=== PATIENT | female | born 1970 | race Caucasian/White ===

== ENCOUNTER 2017-10-07 13:37 | Inpatient (IN) | payer MEDICARE, OTHER ==
[~2017-10-07] VITALS: Ht 162.6 cm; Wt 71.0 kg
[2017-10-07 14:05] VITALS: BP 112/70; PULSE 90; RESP 18; TEMP 98.1; O2SAT 99
--- NOTE | 2017-10-07 14:06 | PD ---
HPI Chief Complaint: ba Time Seen by Provider: 13:45 Travel History International Travel<30 days: No Contact w/Intl Traveler<30days: No Traveled to known affect area: No History of Present Illness HPI 47-year-old female brought to the emergency department under Lee act for psychiatric evaluation. Patient was brought in because she broke her journal that she took 10 pills this morning. When looking at her journal, patient rates every day as she chronicles her daily activity that she takes 10 pills. Patient states that she is depressed and is having suicidal thoughts with a plan to put a knife to her stomach. She has not actively attempted any suicide or overdose attempt today. She has no acute medical needs at this time. [facility] Past Medical History Medical History: Denies Significant Hx Social History Alcohol Use: No Tobacco Use: No Substance Use: No Allergies-Medications (Allergen,Severity, Reaction): Coded Allergies: No Known Drug Allergies (Verified Allergy, Unknown, 10/07/17) Uncoded Allergies: FISH (Allergy, Intermediate, Nausea/Vomiting, 10/07/17) PT STATES SHE CAN'T EAT FISH Reported Meds & Prescriptions Reported Meds & Active Scripts Active Reported Vimpat (Lacosamide) 200 Mg Tab 200 Mg PO BID Keppra (Levetiracetam) 1,000 Mg Tab 2,000 Mg PO BID Omeprazole 20 Mg Tab 20 Mg PO DAILY Zocor (Simvastatin) 20 Mg Tab 20 Mg PO HS Ativan (Lorazepam) 0.5 Mg Tab 0.5 Mg PO HS Synthroid (Levothyroxine Sodium) 88 Mcg Tab 88 Mcg PO DAILY Review of Systems Except as stated in HPI: all other systems reviewed are Neg Physical Exam Narrative GENERAL: Well-nourished female patient in no acute distress. SKIN: Focused skin assessment warm/dry. HEAD: Atraumatic. Normocephalic. EYES: Pupils equal and round. No scleral icterus. No injection or drainage. ENT: No nasal bleeding or discharge. Mucous membranes pink and moist. NECK: Trachea midline. No JVD. CARDIOVASCULAR: Regular rate and rhythm. No murmur appreciated. RESPIRATORY: No accessory muscle use. Clear to auscultation. Breath sounds equal bilaterally. GASTROINTESTINAL: Abdomen soft, non-tender, nondistended. Hepatic and splenic margins not palpable. MUSCULOSKELETAL: No obvious deformities. No clubbing. No cyanosis. No edema. NEUROLOGICAL: Awake and alert. No obvious cranial nerve deficits. Motor grossly within normal limits. Normal speech. Data Data Last Documented VS Vital Signs Date Time Temp Pulse Resp B/P (MAP) Pulse Ox O2 Delivery O2 Flow Rate FiO2 10/07/17 18:34 97.9 78 18 127/65 (85) 97 Room Air Orders Orders Complete Blood Count With Diff (10/07/17 13:45) Comprehensive Metabolic Panel (10/07/17 13:45) Thyroid Stimulating Hormone (10/07/17 13:45) Urinalysis - C+S If Indicated (10/07/17 13:45) Psych Screen (10/07/17 13:45) Drug Screen, Random Urine (10/07/17 13:45) Alcohol (Ethanol) (10/07/17 13:45) Salicylates (Aspirin) (10/07/17 13:45) Tylenol (Acetaminophen) (10/07/17 13:45) Urine Culture (10/07/17 14:00) Lacosamide (Vimpat) (10/07/17 21:45) Levetiracetam (Keppra) (10/07/17 21:45) Lorazepam (Ativan) (10/07/17 21:45) Labs Laboratory Tests Test 10/07/17 14:00 White Blood Count 12.2 TH/MM3 Red Blood Count 4.75 MIL/MM3 Hemoglobin 14.2 GM/DL Hematocrit 42.6 % Mean Corpuscular Volume 89.7 FL Mean Corpuscular Hemoglobin 29.9 PG Mean Corpuscular Hemoglobin Concent 33.3 % Red Cell Distribution Width 14.2 % Platelet Count 323 TH/MM3 Mean Platelet Volume 8.2 FL Neutrophils (%) (Auto) 66.6 % Lymphocytes (%) (Auto) 24.3 % Monocytes (%) (Auto) 7.2 % Eosinophils (%) (Auto) 1.3 % Basophils (%) (Auto) 0.6 % Neutrophils # (Auto) 8.2 TH/MM3 Lymphocytes # (Auto) 3.0 TH/MM3 Monocytes # (Auto) 0.9 TH/MM3 Eosinophils # (Auto) 0.2 TH/MM3 Basophils # (Auto) 0.1 TH/MM3 CBC Comment DIFF FINAL Differential Comment Urine Color YELLOW Urine Turbidity CLOUDY Urine pH 7.0 Urine Specific [place] 1.020 Urine Protein NEG mg/dL Urine Glucose (UA) NEG mg/dL Urine Ketones NEG mg/dL Urine Occult Blood NEG Urine Nitrite NEG Urine Bilirubin NEG Urine Urobilinogen LESS THAN 2.0 MG/DL Urine Leukocyte Esterase MOD Urine RBC 2 /hpf Urine WBC 8 /hpf Urine Squamous Epithelial Cells 14 /hpf Urine Amorphous Sediment OCC Urine Bacteria FEW /hpf Urine Mucus FEW /lpf Microscopic Urinalysis Comment CULTURE INDICATED Blood Urea Nitrogen 13 MG/DL Creatinine 0.81 MG/DL Random Glucose 91 MG/DL Total Protein 8.1 GM/DL Albumin 3.8 GM/DL Calcium Level 9.6 MG/DL Alkaline Phosphatase 86 U/L Aspartate Amino Transf (AST/SGOT) 16 U/L Alanine Aminotransferase (ALT/SGPT) 25 U/L Total Bilirubin 0.1 MG/DL Sodium Level 139 MEQ/L Potassium Level 4.1 MEQ/L Chloride Level 106 MEQ/L Carbon Dioxide Level 25.9 MEQ/L Anion Gap 7 MEQ/L Estimat Glomerular Filtration Rate 75 ML/MIN Thyroid Stimulating Hormone 3rd Gen 0.761 uIU/ML Salicylates Level LESS THAN 1.7 MG/DL Urine Opiates Screen NEG Acetaminophen Level LESS THAN 2.0 MCG/ML Urine Barbiturates Screen NEG Urine Amphetamines Screen NEG Urine Benzodiazepines Screen NEG Urine Cocaine Screen NEG Urine Cannabinoids Screen NEG Ethyl Alcohol Level LESS THAN 3 MG/DL MDM Medical Decision Making Medical Screen Exam Complete: Yes Emergency Medical Condition: Yes Medical Record Reviewed: Yes Differential Diagnosis Mood disorder versus personality disorder versus adjustment reaction disorder Narrative Course 47-year-old female presents to the emergency department under Lee act for psychiatric evaluation. Patient appears without distress. Lab work is without acute concern. Culture is indicated in urine, however there are 14 squamous epithelial cells. This is likely a contaminated specimen. We'll wait for culture to grow before treated on antibiotics. Patient is medically cleared to undergo psychiatric screening for further evaluation and disposition. Diagnosis Primary Impression: Adjustment disorder Condition: Stable Vera Martínez Oct 07, 2017 14:06
[2017-10-07] MEDS ORDERED: OMEP20TA93 PO (14:22)
[2017-10-07] MEDS ORDERED: LORA-392 PO (14:22)
[2017-10-07] MEDS ORDERED: SYNT88TA PO (14:22)
[2017-10-07] MEDS ORDERED: VIMP200T PO (14:22)
[2017-10-07] MEDS ORDERED: KEPP10002 PO (14:22)
[2017-10-07] MEDS ORDERED: ZOCO20TA PO (14:22)
[2017-10-07 14:52] LABS: AMORPHOUS SEDIMENT, URINE OCC; BACTERIA, URINE FEW /hpf; BILIRUBIN, URINE NEG (NEG); BLOOD, URINE NEG (NEG); GLUCOSE,URINE NEG (NEG); KETONE, URINE NEG (NEG); MUCUS URINE FEW /lpf (OCC); NITRITE,URINE NEG (NEG); SQUAMOUS EPITHELIAL CELL URINE 14 /hpf (0-5); URINE COLOR YELLOW (YELLW/STRAW); URINE LEUKOCYTE ESTERASE MOD (NEG)
[2017-10-07 14:53] LABS: AUTOMATED NEUTROPHIL # 8.2 TH/MM3 (1.8-7.7); BASOPHIL # 0.1 TH/MM3 (0-0.2); BASOPHIL % 0.6 % (0.0-2.0); EOSINOPHIL # 0.2 TH/MM3 (0-0.4); EOSINOPHIL % 1.3 % (0.0-4.0); HEMATOCRIT 42.6 % (35.0-46.0); HEMOGLOBIN 14.2 GM/DL (11.6-15.3); LYMPH % 24.3 % (9.0-44.0); MEAN CELL VOLUME 89.7 FL (80.0-100.0); MEAN CORPUSCULAR HEMOGLOBIN 29.9 PG (27.0-34.0); MEAN CORPUSCULAR HGB CONC 33.3 % (32.0-36.0); MEAN PLATELET VOLUME 8.2 FL (7.0-11.0); MONO % 7.2 % (0.0-8.0); MONOCYTE # 0.9 TH/MM3 (0-0.9); NEUT % 66.6 % (16.0-70.0); PLATELET COUNT 323 TH/MM3 (150-450); RED BLOOD COUNT 4.75 MIL/MM3 (4.00-5.30); RED CELL DISTRIBUTION WIDTH 14.2 % (11.6-17.2); WHITE BLOOD COUNT 12.2 TH/MM3 (4.0-11.0)
[2017-10-07 14:55] LABS: ALBUMIN 3.8 GM/DL (3.4-5.0); AST (GOT) 16 U/L (15-37); BICARBONATE 25.9 MEQ/L (21.0-32.0); BLOOD UREA NITROGEN 13 MG/DL (7-18); CALCIUM 9.6 MG/DL (8.5-10.1); CHLORIDE 106 MEQ/L (98-107); CREATININE 0.81 MG/DL (0.50-1.00); GLOMERULAR FILTRATION RATE 75 ML/MIN (>89); GLUCOSE,RANDOM 91 MG/DL (74-106); SODIUM (NA) 139 MEQ/L (136-145)
[2017-10-07 15:05] LABS: ALKALINE PHOSPHATASE 86 U/L (45-117); ALT (GPT) 25 U/L (10-53); TOTAL BILIRUBIN ADULT 0.1 MG/DL (0.2-1.0); TOTAL PROTEIN 8.1 GM/DL (6.4-8.2)
[2017-10-07 15:11] LABS: ACETAMINOPHEN LESS THAN 2.0 MCG/ML (10.0-30.0)
[2017-10-07 18:34] VITALS: BP 127/65; PULSE 78; RESP 18; TEMP 97.9; O2SAT 97
[2017-10-07] MEDS ORDERED: LACOSAMIDE 100 MG TAB PO ONE (21:45)
[2017-10-07] MEDS ORDERED: LORazepam 1 MG TAB PO ONE (21:45)
[2017-10-07] MEDS ORDERED: levETIRAcetam 500 MG TAB PO ONE (21:45)
[2017-10-07 22:19] VITALS: BP 108/57; PULSE 91; RESP 17; O2SAT 100
[2017-10-07 23:05] VITALS: BP 140/63; PULSE 85; RESP 16; TEMP 97.8; O2SAT 98
[2017-10-07] MEDS ORDERED: LORazepam 1 MG TAB PO PRN (23:15)
[2017-10-07] MEDS ORDERED: LORazepam 2 MG/ML VIAL IM PRN (23:15)
[2017-10-07] MEDS ORDERED: ACETAMINOPHEN 325 MG TAB PO PRN (23:15)
[2017-10-07] MEDS ORDERED: MAGNESIUM HYDROXIDE SUSP 30 ML CUP PO PRN (23:15)
[2017-10-07] MEDS ORDERED: ALUMINUM/MAGNESIUM/SIMETH 30 ML CUP PO PRN (23:15)
[2017-10-08 05:00] VITALS: BP 102/58; PULSE 97; RESP 16; TEMP 96.9; O2SAT 96
[2017-10-08] MEDS ORDERED: PNEUMOCOCCAL POLYVALENT INJ 25 MCG/0.5 ML SYR IM ONE (09:00)
[2017-10-08] MEDS ORDERED: INFLUENZA VIRUS VACCINE (QUADRIVALENT) 0.5 ML SYR IM ONE (09:00)
[2017-10-08 09:49] LABS: BICARBONATE 27.9 MEQ/L (21.0-32.0); BLOOD UREA NITROGEN 12 MG/DL (7-18); CALCIUM 9.3 MG/DL (8.5-10.1); CHLORIDE 101 MEQ/L (98-107); CREATININE 0.84 MG/DL (0.50-1.00); GLOMERULAR FILTRATION RATE 72 ML/MIN (>89); GLUCOSE,RANDOM 80 MG/DL (74-106); SODIUM (NA) 138 MEQ/L (136-145)
[2017-10-08 09:50] LABS: CHOLESTEROL 199 MG/DL (120-200)
[2017-10-08 09:53] LABS: CHOLESTEROL/ HDL RATIO 4.97 RATIO; LDL CHOLESTEROL 105 MG/DL (0-99); TRIGLYCERIDES 269 MG/DL (42-150)
[2017-10-08] MEDS: levETIRAcetam 500 MG TAB PO SCH ×2 (10:00→20:37)
--- NOTE | 2017-10-08 10:18 | HHI.HP ---
Provisional Diagnosis Admission Date Oct 07, 2017 at 22:53 [place]. Adjustment disorder with depressed mood Certification of Person's Competence To Provide Express and Informed Consent I have personally examined Sury Hanks , a person being served at [facility] on, Oct 08, 2017 10:17. Express and informed consent means consent voluntarily given in writing, by a competent person, after sufficient explanation and disclosure of the subject matter involved to enable the person to make a knowing and willful decision without any element of force, fraud, deceit, duress, or other form of constraint or coercion. This person is 18 years of age or older, is not now known to be incompetent to consent to treatment with a guardian advocate, and does not have a health care surrogate or proxy currently making medical treatment decisions. I have found this person to be one of the following: [] Competent to provide express and informed consent, as defined above, for voluntary admission to this facility and is competent to provide express and informed consent for treatment. He/she has the consistent capacity to make well reasoned, willful, and knowing decisions concerning his or her medical or mental health treatment. The person fully and consistently understands the purpose of the admission for examination/placement and is fully capable of personally exercising all rights assured [place] [x] Incompetent to provide express and informed consent to voluntary admission, and this is incompetent to provide express and informed consent to treatment. The person must be transferred to involuntary status and a petition for a guardian advocate filed with the Circuit Court. [] Refusing to provide express and informed consent to voluntary admission but is competent to provide express and informed consent for treatment. The person must be discharged or transferred to involuntary status. Form shall be completed within 24 hours of a person's arrival at the receiving facility and filed in the clinical record of each person: 1. Admitted on a voluntary basis 2. Permitted to provide express and informed consent to his/her own treatment 3. Allowed to transfer from involuntary to voluntary status 4. Prior to permitting a person to consent to his or her own treatment after having been previously found incompetent to consent to treatment. 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 Discussion nursing staff reported that patient noted to be childlike and was endorsing suicidal ideation last night. Patient was found in the room noted to be calm and cooperative during to have concrete thought process with limited interactions as patient had bilateral hearing difficulties and was communicating primarily through handwritten notes. Patient was able to communicate that she was feeling like a wreck wanted to kill herself last night in the context of her mother having left her at home alone. Patient states that she had called 9 1 because she wanted to kill herself as well as endorsing that "no one else is nice to me" but did not elaborate further. Patient did report vague auditory hallucinations at night telling her "yes and no" as well as suicide ideation which persisted today. Collateral information obtained by patient's mother via telephone reported that prior to her admission mother had left a note for the patient that she was going to leave the home to take the niece somewhere and when she returned found out through Hospital, the patient was admitted to the inpatient psychiatry unit. Mother reported the patient typically takes about 10 pills at a time and report from ED as documented in the patient had taken 10 tablets with concern of a suicide attempt but mother was able to report that that this the normal amount of tablets she takes daily. She also mentions that patient has had previous episode of SI in high school which she was seen by a psychiatrist but no prior medication trials. She denied patient having had prior suicide attempts or self injurious behavior. She reports that patient was being referred to neurologist by PCP. Family psychiatric history: unable to assess due to limitations of communication as stated above. Past psychiatric history: no prior psychiatric diagnosis, no prior psychiatric admissions, no prior suicide attempt or self injury behavior. No reported previous medication trials. No outpatient mental health provider at this time. 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 Collateral contact: Nakia Harry (mom) [phone] Review of Systems Except as stated in HPI: all other systems reviewed are Neg Past Psych History Violence risk - others (6 mos) low Violence risk - self (6 mos) Elevated due to recent endorsement of suicidal ideations. Substance Abuse History Drugs/Alcohol past 12 months denies Past Family Social History Coded Allergies: No Known Drug Allergies (Verified Allergy, Unknown, 10/07/17) Uncoded Allergies: FISH (Allergy, Intermediate, Nausea/Vomiting, 10/07/17) PT STATES SHE CAN'T EAT FISH Reported Medications Lacosamide (Vimpat) 200 Mg Tab, 200 MG PO BID for Control Seizures, #60 TAB 0 Refills 10/07/17 Levetiracetam (Keppra) 1,000 Mg Tab, 2000 MG PO BID for Control Seizures, #60 TAB 0 Refills 10/07/17 Omeprazole (Omeprazole) 20 Mg Tab, 20 MG PO DAILY, #30 TAB 0 Refills 10/07/17 Simvastatin (Zocor) 20 Mg Tab, 20 MG PO HS for Cholesterol Management, #30 TAB 0 Refills 10/07/17 Lorazepam (Ativan) 0.5 Mg Tab, 0.5 MG PO HS, TAB 0 Refills 10/07/17 Levothyroxine (Synthroid) 88 Mcg Tab, 88 MCG PO DAILY for Thyroid, #30 TAB 0 Refills 10/07/17 Current Medications Medications (Trade) Dose Ordered Sig/Raeann Route Start Time Stop Time Status Last Admin (Ativan) 1 mg Q6H PRN PO 10/07/17 23:15 (Ativan Inj) 1 mg Q6H PRN IM 10/07/17 23:15 (Tylenol) 650 mg Q4H PRN PO 10/07/17 23:15 (Milk Of Magnesia Liq) 30 ml DAILY PRN PO 10/07/17 23:15 (Mag-Al Plus Susp Liq) 30 ml Q6H PRN PO 10/07/17 23:15 (Vimpat) 200 mg BID PO 10/08/17 11:00 (Keppra) 2,000 mg BID PO 10/08/17 10:00 (Synthroid) 88 mcg DAILY@0600 PO 10/09/17 06:00 (Protonix) 20 mg DAILY PO 10/08/17 09:30 (Pravachol) 40 mg HS PO 10/08/17 21:00 (Zoloft) 50 mg DAILY PO 10/08/17 10:00 Family Psych History unable to assess due to limitations of communication as stated above. Social History Single, domiciled with mother and mother's , unemployed. Collateral contact: Nakia Harry (mom) [phone] Patient's Strengths (min. 2) verbal and communicative Physical Exam Patient noted to be in acute distress, no gross motor abnormalities, no tremor or EPS, no psychomotor retardation or agitation. Vital Signs Vital Signs Date Time Temp Pulse Resp B/P (MAP) Pulse Ox O2 Delivery O2 Flow Rate FiO2 10/08/17 05:00 96.9 97 16 102/58 (73) 96 10/07/17 22:19 Room Air I/O 10/08/17 10/08/17 10/09/17 08:00 16:00 00:00 Intake Total 240 ml Balance 240 ml Lab Results Test 10/07/17 14:00 10/08/17 08:30 White Blood Count 12.2 TH/MM3 Red Blood Count 4.75 MIL/MM3 Hemoglobin 14.2 GM/DL Hematocrit 42.6 % Mean Corpuscular Volume 89.7 FL Mean Corpuscular Hemoglobin 29.9 PG Mean Corpuscular Hemoglobin Concent 33.3 % Red Cell Distribution Width 14.2 % Platelet Count 323 TH/MM3 Mean Platelet Volume 8.2 FL Neutrophils (%) (Auto) 66.6 % Lymphocytes (%) (Auto) 24.3 % Monocytes (%) (Auto) 7.2 % Eosinophils (%) (Auto) 1.3 % Basophils (%) (Auto) 0.6 % Neutrophils # (Auto) 8.2 TH/MM3 Lymphocytes # (Auto) 3.0 TH/MM3 Monocytes # (Auto) 0.9 TH/MM3 Eosinophils # (Auto) 0.2 TH/MM3 Basophils # (Auto) 0.1 TH/MM3 CBC Comment DIFF FINAL Differential Comment Urine Color YELLOW Urine Turbidity CLOUDY Urine pH 7.0 Urine Specific [place] 1.020 Urine Protein NEG mg/dL Urine Glucose (UA) NEG mg/dL Urine Ketones NEG mg/dL Urine Occult Blood NEG Urine Nitrite NEG Urine Bilirubin NEG Urine Urobilinogen LESS THAN 2.0 MG/DL Urine Leukocyte Esterase MOD Urine RBC 2 /hpf Urine WBC 8 /hpf Urine Squamous Epithelial Cells 14 /hpf Urine Amorphous Sediment OCC Urine Bacteria FEW /hpf Urine Mucus FEW /lpf Microscopic Urinalysis Comment CULTURE INDICATED Blood Urea Nitrogen 13 MG/DL 12 MG/DL Creatinine 0.81 MG/DL 0.84 MG/DL Random Glucose 91 MG/DL 80 MG/DL Total Protein 8.1 GM/DL Albumin 3.8 GM/DL Calcium Level 9.6 MG/DL 9.3 MG/DL Alkaline Phosphatase 86 U/L Aspartate Amino Transf (AST/SGOT) 16 U/L Alanine Aminotransferase (ALT/SGPT) 25 U/L Total Bilirubin 0.1 MG/DL Sodium Level 139 MEQ/L 138 MEQ/L Potassium Level 4.1 MEQ/L 3.8 MEQ/L Chloride Level 106 MEQ/L 101 MEQ/L Carbon Dioxide Level 25.9 MEQ/L 27.9 MEQ/L Anion Gap 7 MEQ/L 9 MEQ/L Estimat Glomerular Filtration Rate 75 ML/MIN 72 ML/MIN Thyroid Stimulating Hormone 3rd Gen 0.761 uIU/ML Salicylates Level LESS THAN 1.7 MG/DL Urine Opiates Screen NEG Acetaminophen Level LESS THAN 2.0 MCG/ML Urine Barbiturates Screen NEG Urine Amphetamines Screen NEG Urine Benzodiazepines Screen NEG Urine Cocaine Screen NEG Urine Cannabinoids Screen NEG Ethyl Alcohol Level LESS THAN 3 MG/DL Triglycerides Level 269 MG/DL Cholesterol Level 199 MG/DL LDL Cholesterol 105 MG/DL HDL Cholesterol 40.0 MG/DL Cholesterol/HDL Ratio 4.97 RATIO Date/Time Source Procedure Growth Status 10/07/17 14:00 Urine Random Urine Urine Culture Pending Received Mental Status Examination Appearance: Appropriate Consciousness: Alert Orientation: Person, Place Motor Activity: Other (slow gait) Speech: Slow Language: Adequate Fund of Knowledge: Inadequate Attention and Concentration: Inadequate Memory: Unremarkable Mood: Appropriate Affect: Blunt Thought Process & Associations: Other (concrete) Thought Content: Appropriate Hallucination Type: None, Auditory Delusion Type: None Suicidal Ideation: Yes Suicidal Plan: Yes Suicidal Intention: No Homicidal Ideation: No Homicidal Plan: No Homicidal Intention: No Insight: Fair Judgment: Impulsive Assessment & Plan Problem List: (1) Adjustment disorder with depressed mood ICD Codes: F43.21 - Adjustment disorder with depressed mood Assessment & Plan Estimated LOS: 5-7 days. 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 Patient continues to report feeling depressed lately along with vague suicide ideations at this time. Patient noted to have very concrete thought process due to sequelae from past treatment for brain cancer. We will petition for involuntary hospitalization, with a point mother as after surgery guardian advocate. Consent for treatment was discussed with patient's mother over the phone. We will start sertraline 50 mg p.o. daily for depression, request a neurology consult for recommendations for antiseizure regimen. Continue to monitor with behavior. Social work intervention for psychosocial evaluation, individual/ group therapy. Discharge planning in progress. Discharge Planning Patient to return back to her residence once psychiatrically cleared Junaid Duran MD Oct 08, 2017 10:18
[2017-10-08] MEDS: LACOSAMIDE 100 MG TAB PO SCH ×2 (11:41→20:37)
[2017-10-08] MEDS: PANTOPRAZOLE SOD 20 MG DELAYED RELEASE TAB PO SCH (11:42)
[2017-10-08] MEDS: SERTRALINE HCL 50 MG TAB PO SCH (11:42)
--- NOTE | 2017-10-08 15:09 | PD.CONS ---
HPI Service [facility] Hospitalists Consult Requested By Dr. 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 Reportedly patient stated in the ER she wanted to put a knife in her stomach. Hospitalists consulted for medical management. The patient is seen in her room. She is very hard of hearing and therefore most communication was done via writing. She denies any specific medical complaints including no headache, lightheadedness, dizziness, chest pain, palpitations, shortness of breath, or abdominal complaints. She reports taking Keppra and Vimpat for her seizures. Denies any recent seizure. Review of Systems ROS Limitations: Hearing Impaired Except as stated in HPI: all other systems reviewed are Neg Past Family Social History Allergies: Coded Allergies: No Known Drug Allergies (Verified Allergy, Unknown, 10/07/17) Uncoded Allergies: FISH (Allergy, Intermediate, Nausea/Vomiting, 10/07/17) PT STATES SHE CAN'T EAT FISH Past Medical History right frontotemporal brain tumor resection age 13 s/p chemo/radiation seizures anxiety depression hypothyroidism GERD Past Surgical History Right frontotemporal brain tumor resection age 13 Reported Medications Vimpat (Lacosamide) 200 Mg Tab 200 Mg PO BID Keppra (Levetiracetam) 1,000 Mg Tab 2,000 Mg PO BID Omeprazole 20 Mg Tab 20 Mg PO DAILY Zocor (Simvastatin) 20 Mg Tab 20 Mg PO HS Ativan (Lorazepam) 0.5 Mg Tab 0.5 Mg PO HS Synthroid (Levothyroxine Sodium) 88 Mcg Tab 88 Mcg PO DAILY Active Ordered Medications Current Medications Medications (Trade) Dose Ordered Sig/Raeann Route Start Time Stop Time Status Last Admin (Ativan) 1 mg Q6H PRN PO 10/07/17 23:15 (Ativan Inj) 1 mg Q6H PRN IM 10/07/17 23:15 (Tylenol) 650 mg Q4H PRN PO 10/07/17 23:15 (Milk Of Magnesia Liq) 30 ml DAILY PRN PO 10/07/17 23:15 (Mag-Al Plus Susp Liq) 30 ml Q6H PRN PO 10/07/17 23:15 (Vimpat) 200 mg BID PO 10/08/17 11:00 10/08/17 11:41 (Keppra) 2,000 mg BID PO 10/08/17 10:00 10/08/17 10:00 (Synthroid) 88 mcg DAILY@0600 PO 10/09/17 06:00 (Protonix) 20 mg DAILY PO 10/08/17 09:30 10/08/17 11:42 (Pravachol) 40 mg HS PO 10/08/17 21:00 (Zoloft) 50 mg DAILY PO 10/08/17 10:00 10/08/17 11:42 (Ativan) 0.5 mg HS PO 10/08/17 21:00 Family History Family history positive for depression Social History Denies any tobacco, alcohol, or illicit drug use Physical Exam Vital Signs Vital Signs Date Time Temp Pulse Resp B/P (MAP) Pulse Ox O2 Delivery O2 Flow Rate FiO2 10/08/17 05:00 96.9 97 16 102/58 (73) 96 10/07/17 23:05 97.8 85 16 140/63 (88) 98 10/07/17 23:03 10/07/17 22:19 91 17 108/57 (74) 100 Room Air 10/07/17 18:34 97.9 78 18 127/65 (85) 97 Room Air Physical Exam GENERAL: Well-nourished, well-developed patient in NAD. Hard of hearing. SKIN: Warm and dry. No rash. HEAD: Normocephalic. Atraumatic. EYES: Pupils equal and round. No scleral icterus. No injection or drainage. ENT: No nasal bleeding or discharge. Mucous membranes pink and moist. NECK: Supple. Trachea midline. CARDIOVASCULAR: Regular rate and rhythm. S1, S2 noted. No murmur appreciated. RESPIRATORY: No accessory muscle use. Clear to auscultation. Breath sounds equal bilaterally. GASTROINTESTINAL: Abdomen soft, non-tender, nondistended. Normoactive bowel sounds x4. MUSCULOSKELETAL: No obvious deformities. Extremities without clubbing, cyanosis , or edema. NEUROLOGICAL: Awake and alert. No obvious cranial nerve deficits. Motor grossly within normal limits. Normal speech. Laboratory Laboratory Tests Test 10/08/17 08:30 Blood Urea Nitrogen 12 Creatinine 0.84 Random Glucose 80 Calcium Level 9.3 Sodium Level 138 Potassium Level 3.8 Chloride Level 101 Carbon Dioxide Level 27.9 Anion Gap 9 Estimat Glomerular Filtration Rate 72 Triglycerides Level 269 Cholesterol Level 199 LDL Cholesterol 105 HDL Cholesterol 40.0 Cholesterol/HDL Ratio 4.97 Date/Time Source Procedure Growth Status 10/07/17 14:00 Urine Random Urine Urine Culture - Final 50-100,000 CFU/ML MIXED GRAM POSITIVE... 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 Hospitalists consulted for medical management. Depression with Suicidal Ideations: acute -continue management per psychiatry -currently on Zoloft Seizures: with hx of brain tumor resection. Chronic. -continue patient's vimpat and keppra -neurology consulted by psychiatry team Hearing Loss: patient with hx of right frontotemporal brain tumor resection age 13, now with progressive hearing loss -no prior imaging study on file, will check head CT -neurology consulted as above Hypothyroidism: chronic. TSH wnl. -continue patient's synthroid DVT Prophylaxis: patient is ambulatory Discussed Condition With Patient, psych staff Jocelynn Funk PA-C Oct 08, 2017 3:09 pm
[2017-10-08 16:05] LABS: HEMOGLOBIN A1C 5.7 % (4.3-6.0)
--- NOTE | 2017-10-08 16:21 | RADRPT ---
EXAM DATE/TIME: 10/08/2017 16:11 [facility] COMPARISON: No previous studies available for comparison. INDICATIONS : Progressive hearing loss. RADIATION DOSE: 36.33 CTDIvol (mGy) MEDICAL HISTORY : Seizures. ca brain, chemo, Rad tx SURGICAL HISTORY : Lobectomy. ENCOUNTER: Initial ACUITY: 1 day PAIN SCALE: 0/10 LOCATION: cranial TECHNIQUE: Multiple contiguous axial images were obtained of the head. Using automated exposure control and adj ustment of the mA and/or kV according to patient size, radiation dose was kept as low as reasonably a chievable to obtain optimal diagnostic quality images. DICOM format image data is available electro nically for review and comparison. FINDINGS: There are encephalomalacia changes in the right temporal region. There is mild central and cortical atrophy. Parenchymal calcification basalganglia right side. Ventricle size appropriate. There are no extra-axial fluid collections appreciated. Posterior fossa shows mild atrophic changes. Review of bone windows reveals hyperostosis frontalis interna There is no mastoid disease. CONCLUSION: Negative for an acute process I have no prior studies for comparison. MRI would be more sensitive for acoustic neuroma. Graeme Aguirre MD FACR on October 08, 2017 at 16:17 Board Certified Radiologist. This report was verified electronically.
[2017-10-08 16:43] VITALS: BP 103/80; PULSE 90; RESP 16; TEMP 98.1; O2SAT 98
[2017-10-08] MEDS: LORazepam 0.5 MG TAB PO SCH (20:37)
[2017-10-08] MEDS: PRAVASTATIN SOD 40 MG TAB PO SCH (20:37)
[2017-10-09] MEDS: LEVOTHYROXINE SODIUM 88 MCG TAB PO SCH (06:08)
[2017-10-09 06:30] VITALS: BP 104/56; PULSE 100; RESP 16; TEMP 98; O2SAT 96
[2017-10-09] MEDS: levETIRAcetam 500 MG TAB PO SCH ×2 (08:35→21:07)
[2017-10-09] MEDS: PANTOPRAZOLE SOD 20 MG DELAYED RELEASE TAB PO SCH (08:35)
[2017-10-09] MEDS: LACOSAMIDE 100 MG TAB PO SCH ×2 (08:35→21:07)
[2017-10-09] MEDS: SERTRALINE HCL 50 MG TAB PO SCH (08:35)
--- NOTE | 2017-10-09 12:01 | HHI.PR ---
Subjective Remarks The patient is seen resting in bed. She states she is very sleepy today, otherwise denies any other medical complaints. She consistently falls asleep during conversation. Vital signs reviewed and stable. No issues reported. Objective Vitals Vital Signs Date Time Temp Pulse Resp B/P (MAP) Pulse Ox O2 Delivery O2 Flow Rate FiO2 10/09/17 06:30 98.0 100 16 104/56 (72) 96 10/08/17 16:43 98.1 90 16 103/80 (88) 98 I/O 10/08/17 10/08/17 10/08/17 10/09/17 10/09/17 10/09/17 06:59 14:59 22:59 06:59 14:59 22:59 Intake Total 240 ml 240 ml 0 ml Balance 240 ml 240 ml 0 ml Intake Oral 240 ml 240 ml 0 ml Result Diagram: 10/07/17 1400 10/08/17 0830 Imaging Last Impressions Head CT 10/08/17 0000 Signed Impressions: Service Date/Time: Sunday, October 08, 2017 16:11 - CONCLUSION: Negative for an acute process I have no prior studies for comparison. MRI would be more sensitive for acoustic neuroma. Graeme Aguirre MD FACR Objective Remarks GENERAL: Well-nourished, well-developed patient in NAD. Hard of hearing. SKIN: Warm and dry. No rash. HEENT: Normocephalic. Atraumatic. Pupils equal and round. Mucous membranes pink and moist. CARDIOVASCULAR: Regular rate and rhythm. S1, S2 noted. No murmur appreciated. RESPIRATORY: No accessory muscle use. Clear to auscultation. Breath sounds equal bilaterally. GASTROINTESTINAL: Abdomen soft, non-tender, nondistended. Normoactive bowel sounds x4. MUSCULOSKELETAL: No obvious deformities. Extremities without clubbing, cyanosis , or edema. NEUROLOGICAL: Awake and alert. No obvious cranial nerve deficits. Motor grossly within normal limits. Normal speech. Medications and IVs Current Medications Medications (Trade) Dose Ordered Sig/Raeann Route Start Time Stop Time Status Last Admin (Ativan) 1 mg Q6H PRN PO 10/07/17 23:15 (Ativan Inj) 1 mg Q6H PRN IM 10/07/17 23:15 (Tylenol) 650 mg Q4H PRN PO 2/8/18 23:15 (Milk Of Magnesia Liq) 30 ml DAILY PRN PO 10/07/17 23:15 (Mag-Al Plus Susp Liq) 30 ml Q6H PRN PO 10/07/17 23:15 (Vimpat) 200 mg BID PO 10/08/17 11:00 10/09/17 08:35 (Keppra) 2,000 mg BID PO 10/08/17 10:00 10/09/17 08:35 (Synthroid) 88 mcg DAILY@0600 PO 10/09/17 06:00 10/09/17 06:08 (Protonix) 20 mg DAILY PO 10/08/17 09:30 10/09/17 08:35 (Pravachol) 40 mg HS PO 10/08/17 21:00 10/08/17 20:37 (Zoloft) 50 mg DAILY PO 10/08/17 10:00 10/09/17 08:35 (Ativan) 0.5 mg HS PO 10/08/17 21:00 10/08/17 20:37 A/P Problem List: (1) Adjustment disorder with depressed mood ICD Code: F43.21 - Adjustment disorder with depressed mood Assessment and Plan 47-year-old female with 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 Hospitalists consulted for medical management. Depression with Suicidal Ideations: acute -continue management per psychiatry -currently on Zoloft Seizures: with hx of brain tumor resection. Chronic. -continue patient's vimpat and keppra -neurology consulted by psychiatry team Hearing Loss: patient with hx of right frontotemporal brain tumor resection age 13, now with progressive hearing loss, unknown duration -Head CT images reviewed, no acute findings -Check brain MRI -neurology consulted as above Hypothyroidism: chronic. TSH wnl. -continue patient's synthroid DVT Prophylaxis: patient is ambulatory Jocelynn Funk PA-C Oct 09, 2017 12:01 pm
--- NOTE | 2017-10-09 14:11 | PD.PSY.CON ---
Provisional Diagnosis Admission Date Oct 07, 2017 at 22:53 [facility]. Adjustment disorder with depressed mood History of Present Illness Service Psychiatry Consult Requested By Psychiatry Reason for Consult 2nd opinion Primary Care Physician Unknown HPI Pt is a 39 YOWF with a hx of R temporal lobectomy, seizure disorder and hypothyroidism who was admitted to under a BA due to suicidal ideations and depression. Staff report that she has been focused on discharge. She has been compliant with medications. She reports depression and AH. She endorses recent SI but insight into need for treatment is poor. 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 Collateral contact: Nakia Harry (mom) [phone] Past Family Social History Coded Allergies: No Known Drug Allergies (Verified Allergy, Unknown, 10/07/17) Uncoded Allergies: FISH (Allergy, Intermediate, Nausea/Vomiting, 10/07/17) PT STATES SHE CAN'T EAT FISH Reported Medications Lacosamide (Vimpat) 200 Mg Tab, 200 MG PO BID for Control Seizures, #60 TAB 0 Refills 10/07/17 Levetiracetam (Keppra) 1,000 Mg Tab, 2000 MG PO BID for Control Seizures, #60 TAB 0 Refills 10/07/17 Omeprazole (Omeprazole) 20 Mg Tab, 20 MG PO DAILY, #30 TAB 0 Refills 10/07/17 Simvastatin (Zocor) 20 Mg Tab, 20 MG PO HS for Cholesterol Management, #30 TAB 0 Refills 10/07/17 Lorazepam (Ativan) 0.5 Mg Tab, 0.5 MG PO HS, TAB 0 Refills 10/07/17 Levothyroxine (Synthroid) 88 Mcg Tab, 88 MCG PO DAILY for Thyroid, #30 TAB 0 Refills 10/07/17 Current Medications Medications (Trade) Dose Ordered Sig/Raeann Route Start Time Stop Time Status Last Admin (Ativan) 1 mg Q6H PRN PO 10/07/17 23:15 (Ativan Inj) 1 mg Q6H PRN IM 10/07/17 23:15 (Tylenol) 650 mg Q4H PRN PO 10/07/17 23:15 (Milk Of Magnesia Liq) 30 ml DAILY PRN PO 10/07/17 23:15 (Mag-Al Plus Susp Liq) 30 ml Q6H PRN PO 10/07/17 23:15 (Vimpat) 200 mg BID PO 10/08/17 11:00 10/09/17 08:35 (Keppra) 2,000 mg BID PO 10/08/17 10:00 10/09/17 08:35 (Synthroid) 88 mcg DAILY@0600 PO 10/09/17 06:00 10/09/17 06:08 (Protonix) 20 mg DAILY PO 10/08/17 09:30 10/09/17 08:35 (Pravachol) 40 mg HS PO 10/08/17 21:00 10/08/17 20:37 (Zoloft) 50 mg DAILY PO 10/08/17 10:00 10/09/17 08:35 (Ativan) 0.5 mg HS PO 10/08/17 21:00 10/08/17 20:37 Patient's Strengths (min. 2) verbal and communicative Physical Exam Vital Signs Vital Signs Date Time Temp Pulse Resp B/P (MAP) Pulse Ox O2 Delivery O2 Flow Rate FiO2 10/09/17 06:30 98.0 100 16 104/56 (72) 96 10/07/17 22:19 Room Air I/O 10/09/17 10/09/17 10/10/17 08:00 16:00 00:00 Intake Total 0 ml Balance 0 ml Lab Results Date/Time Source Procedure Growth Status 10/07/17 14:00 Urine Random Urine Urine Culture - Final 50-100,000 CFU/ML MIXED GRAM POSITIVE... Complete Mental Status Examination Appearance: Appropriate Consciousness: Alert Orientation: Person, Place Motor Activity: Other (slow gait) Speech: Slow Language: Adequate Fund of Knowledge: Inadequate Attention and Concentration: Inadequate Memory: Unremarkable Mood: Appropriate Affect: Blunt Thought Process & Associations: Other (concrete) Thought Content: Appropriate Hallucination Type: None, Auditory Delusion Type: None Suicidal Ideation: Yes Suicidal Plan: Yes Suicidal Intention: No Homicidal Ideation: No Homicidal Plan: No Homicidal Intention: No Insight: Fair Judgment: Impulsive Assessment & Plan Problem List: (1) Adjustment disorder with depressed mood ICD Codes: F43.21 - Adjustment disorder with depressed mood Assessment & Plan I agree that pt meets criteria for involuntary hospitalization. Estimated LOS: days Sandy Flor MD Oct 09, 2017 14:11
--- NOTE | 2017-10-09 15:14 | MB ---
cc: FILIBERTO MOTLEY M.D. DATE OF CONSULTATION: 10/09/2017. REASON FOR CONSULTATION: Possible seizure. History of right frontotemporal brain tumor resection. HISTORY OF PRESENT ILLNESS: This is a 47-year-old woman with a history of, as stated, right frontotemporal brain tumor resection at age 13 with chemotherapy and radiation, history of seizures. She also has a history of anxiety, depression, hypothyroidism. She was brought into psychiatry and [facility] for depression and suicidal ideation. She stated in the emergency room she wanted to put a knife into her stomach. She currently is on Keppra and Vimpat. Keppra is 1000 milligrams twice a day and Vimpat is 200 milligrams twice a day and Ativan is 0.5 milligram at bedtime. She does not really answer any questions for me. She does a lot of writing but otherwise really does not follow what I am asking her. PAST MEDICAL HISTORY: She has a past medical history as stated. ALLERGIES: NONE REPORTED. CURRENT MEDICATIONS: 1. Vimpat. 2. Keppra. 3. Omeprazole. 4. Zocor. 5. Ativan. 6. Synthroid. FAMILY HISTORY: Depression. SOCIAL HISTORY: No tobacco, alcohol or drugs per chart. PHYSICAL EXAMINATION: VITAL SIGNS: On exam vitals are stable. Temperature is 98, heart rate between 90 to 100, respiratory rate 16, blood pressure 104/56. She is awake and alert. She is sitting at the end of bed writing. Her pupils are reactive. She has a right temporal abnormality from where she had surgery. Face looks symmetrical. Her speech is not dysarthric but very hypophonic, very monotone. Pupils reactive. Motor-brown she seems to move everything equally. Gait is withheld but she has been ambulating. DTRs are 1 to 2+. She does not follow for cerebellar. LABORATORY DATA: white count 12.2, no left shift. Chemistries: GFR 72. Triglycerides 269, cholesterol 199, LDL 105, HDL 40. HCG is negative. TSH 0.761. Tox screen was basically unremarkable. Urine cloudy with some white cells and culture is pending and does show 50 to 100,000 mixed lashawn. IMAGING STUDIES: Head CT negative for any acute process. IMPRESSION: 47-year-old woman with history of epilepsy, likely from removal of a brain tumor at age 13. 1. Continue her Keppra, lacosamide and Ativan. 2. I would get an MRI and an EEG. 3. Continue psychiatric care as doing. 4. If needed, further recommendations to be made accordingly. MD [address]/MARIA A /1:40 PM /3:06 PM
[2017-10-09 18:19] VITALS: BP 110/65; PULSE 104; RESP 16; TEMP 98.6; O2SAT 98
[2017-10-09] MEDS: PRAVASTATIN SOD 40 MG TAB PO SCH (21:07)
[2017-10-09] MEDS: LORazepam 0.5 MG TAB PO SCH (21:07)
--- NOTE | 2017-10-10 00:16 | EKG ---
Date Performed: 10/08/2017 Time Performed: 12:29:26 PTAGE: 47 years EKG: Sinus rhythm NORMAL ECG NO PREVIOUS TRACING DOCTOR: Alexi Mcfadedn Interpretating Date/Time 10/10/2017 00:14:59
[2017-10-10 06:22] VITALS: BP 106/56; PULSE 92; RESP 17; TEMP 99.1; O2SAT 92
[2017-10-10] MEDS: LEVOTHYROXINE SODIUM 88 MCG TAB PO SCH (06:25)
[2017-10-10] MEDS: LACOSAMIDE 100 MG TAB PO SCH ×2 (08:56→21:05)
[2017-10-10] MEDS: SERTRALINE HCL 50 MG TAB PO SCH (08:56)
[2017-10-10] MEDS: PANTOPRAZOLE SOD 20 MG DELAYED RELEASE TAB PO SCH (08:56)
[2017-10-10] MEDS: levETIRAcetam 500 MG TAB PO SCH ×2 (08:56→21:04)
[2017-10-10] MEDS ORDERED: GADODIAMIDE PF 287 MG/ML 20 ML VIAL (for RAD MRI) IVCONTRAST ONE (12:37)
--- NOTE | 2017-10-10 13:08 | RADRPT ---
EXAM DATE/TIME: 10/10/2017 12:27 [facility] COMPARISON: CT BRAIN W/O CONTRAST, October 08, 2017, 16:11. INDICATIONS : Psychosis. CONTRAST: 13 cc Omniscan (gadodiamide) IV MEDICAL HISTORY : Seizures. ca brain, chemo, Rad tx SURGICAL HISTORY : Lobectomy. ENCOUNTER: Initial ACUITY: 3 day PAIN SCORE: 0/10 LOCATION: cranial TECHNIQUE: Multiplanar, multisequence MRI of the brain was performed both prior to and following the administrat ion of paramagnetic contrast. FINDINGS: CEREBRUM: There has been apparent resection of the right anterior temporal lobe. There is abnormal white matter signal and expansion of the gyri identified within the left temporal lobe concerning for neoplasm. T his area demonstrates no evidence of enhancement after the administration of contrast. The remainder of the brain demonstrates normal dempsey-white matter differentiation. No additional sites of gyral enla rgement. No evidence of additional mass effect. No midline shift. WHITE MATTER: Abnormal increased T2 signal identified within the white matter of the left temporal lobe and scatter ed foci of increased T2 signal identified in the periventricular white matter. POSTERIOR FOSSA: The cerebellum and brainstem are intact. The 4th ventricle is midline. The cerebellopontine angle is unremarkable. The cerebellar tonsils are normal in position. DIFFUSION IMAGING: No focal areas of restricted diffusion are seen. No evidence of acute infarction. EXTRACRANIAL: The visualized portions of the orbits and paranasal sinuses are unremarkable. POST-CONTRAST: No abnormal areas of parenchymal or dural enhancement. No evidence of blood-brain barrier breakdown. CONCLUSION: The anterior aspect of the left temporal lobe is diffusely abnormal in appearance with increased T2 s ignal and expansion of the gyri concerning for neoplastic involvement. No evidence of enhancement. Th ere has been resection of the anterior aspect of the right temporal lobe.. Carmita Cortes MD on October 10, 2017 at 12:59 Board Certified Radiologist. This report was verified electronically.
--- NOTE | 2017-10-10 14:42 | HHI.PYPN ---
Subjective Remarks Pt seen and discussed with staff. She has been seclusive to her room. She has been obsessively making journal entries of every activity including # of bites of food. She was compliant [facility] medications and care. No aggressive behavior. Mental Status Examination Appearance: Appropriate Consciousness: Alert Orientation: Person, Place Motor Activity: Other (slow gait) Speech: Slow Language: Adequate Fund of Knowledge: Inadequate Attention and Concentration: Inadequate Memory: Unremarkable Mood: Appropriate Affect: Blunt Thought Process & Associations: Other (concrete) Thought Content: Appropriate Hallucination Type: None, Auditory Delusion Type: None Suicidal Ideation: No (denies today) Suicidal Plan: No Suicidal Intention: No Homicidal Ideation: No Homicidal Plan: No Homicidal Intention: No Insight: Fair Judgment: Impulsive Results Labs Date/Time Source Procedure Growth Status 10/07/17 14:00 Urine Random Urine Urine Culture - Final 50-100,000 CFU/ML MIXED GRAM POSITIVE... Complete Vitals/IOs Vital Signs Date Time Temp Pulse Resp B/P (MAP) Pulse Ox O2 Delivery O2 Flow Rate FiO2 10/10/17 06:22 99.1 92 17 106/56 (73) 92 10/07/17 22:19 Room Air Assessment & Plan Problem List: (1) Adjustment disorder with depressed mood ICD Codes: F43.21 - Adjustment disorder with depressed mood Assessment & Plan Continue current tx plan. Estimated LOS: days Justification for Cont. Inpt. monitoring for safety Sandy Flor MD Oct 10, 2017 14:42
--- NOTE | 2017-10-10 15:41 | HHI.PR ---
Subjective Remarks Follow up for hx of seizures, brain tumor, hearing loss. The patient is much more awake, alert today. Seen ambulating the hallways, brought to her room for evaluation in presence of [employer]. Communicated via writing. Discussed her abnormal MRI results. She states she is not aware of anything being abnormal on the left side of her brain. She states the right side was resected as a teenager. She's had total hearing loss for about 5 years now. Denies any headache, lightheadedness, dizziness, or visual changes. She is able to ambulate without difficulty. She has no other medical complaints at this time. She consistently asks for pants with a draw string throughout conversation and has a hard time focusing on the questions being asked. Objective Vitals Vital Signs Date Time Temp Pulse Resp B/P (MAP) Pulse Ox O2 Delivery O2 Flow Rate FiO2 10/10/17 06:22 99.1 92 17 106/56 (73) 92 10/09/17 18:19 98.6 104 16 110/65 (80) 98 I/O 10/09/17 10/09/17 10/09/17 10/10/17 10/10/17 10/10/17 07:00 15:00 23:00 07:00 15:00 23:00 Intake Total 0 ml 240 ml Balance 0 ml 240 ml Intake Oral 0 ml 240 ml Result Diagram: 10/07/17 1400 10/08/17 0830 Imaging Last Impressions Brain MRI 10/10/17 0000 Signed Impressions: Service Date/Time: Tuesday, October 10, 2017 12:27 - CONCLUSION: The anterior aspect of the left temporal lobe is diffusely abnormal in appearance with increased T2 signal and expansion of the gyri concerning for neoplastic involvement. No evidence of enhancement. There has been resection of the anterior aspect of the right temporal lobe.. Carmita Cortes MD Head CT 10/08/17 0000 Signed Impressions: Service Date/Time: Sunday, October 08, 2017 16:11 - CONCLUSION: Negative for an acute process I have no prior studies for comparison. MRI would be more sensitive for acoustic neuroma. Graeme Aguirre MD FACR Objective Remarks GENERAL: Well-nourished, well-developed patient in NAD. Deaf. SKIN: Warm and dry. No rash. HEENT: Normocephalic. Atraumatic. Pupils equal and round. Mucous membranes pink and moist. CARDIOVASCULAR: Regular rate and rhythm. S1, S2 noted. No murmur appreciated. RESPIRATORY: No accessory muscle use. Clear to auscultation. Breath sounds equal bilaterally. GASTROINTESTINAL: Abdomen soft, non-tender, nondistended. Normoactive bowel sounds x4. MUSCULOSKELETAL: No obvious deformities. Extremities without clubbing, cyanosis , or edema. NEUROLOGICAL: Awake and alert. No obvious cranial nerve deficits. Motor grossly within normal limits. Normal speech. Medications and IVs Current Medications Medications (Trade) Dose Ordered Sig/Raeann Route Start Time Stop Time Status Last Admin (Ativan) 1 mg Q6H PRN PO 10/07/17 23:15 (Ativan Inj) 1 mg Q6H PRN IM 10/07/17 23:15 (Tylenol) 650 mg Q4H PRN PO 10/07/17 23:15 (Milk Of Magnesia Liq) 30 ml DAILY PRN PO 10/07/17 23:15 (Mag-Al Plus Susp Liq) 30 ml Q6H PRN PO 10/07/17 23:15 (Vimpat) 200 mg BID PO 10/08/17 11:00 10/10/17 08:56 (Keppra) 2,000 mg BID PO 10/08/17 10:00 10/10/17 08:56 (Synthroid) 88 mcg DAILY@0600 PO 10/09/17 06:00 10/10/17 06:25 (Protonix) 20 mg DAILY PO 10/08/17 09:30 10/10/17 08:56 (Pravachol) 40 mg HS PO 10/08/17 21:00 10/09/17 21:07 (Zoloft) 50 mg DAILY PO 10/08/17 10:00 10/10/17 08:56 (Ativan) 0.5 mg HS PO 10/08/17 21:00 10/09/17 21:07 A/P Problem List: (1) Adjustment disorder with depressed mood ICD Code: F43.21 - Adjustment disorder with depressed mood Assessment and Plan 47-year-old female with 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 Hospitalists consulted for medical management. Depression with Suicidal Ideations: acute -continue management per psychiatry -currently on Zoloft Seizures: with hx of brain tumor resection. Chronic. -continue patient's vimpat and keppra -neurology consulted by psychiatry team, appreciate recommendations -checking EEG Hearing Loss with Abnormal Brain MRI: patient with hx of right frontotemporal brain tumor resection age 13, now with progressive hearing loss -Head CT images reviewed, no acute findings -Brain MRI shows anterior aspect of left temporal lobe diffusely abnormal with increased T2 signal and expansion of the gyri concerning for neoplastic involvement -neurology consulted as above -consult neurosurgery and oncology Hypothyroidism: chronic. TSH wnl. -continue patient's synthroid DVT Prophylaxis: patient is ambulatory Jocelynn Funk PA-C Oct 10, 2017 3:41 pm
[2017-10-10 17:30] VITALS: BP 128/82; PULSE 101; RESP 16; TEMP 98.9; O2SAT 96
--- NOTE | 2017-10-10 17:31 | MB ---
cc: VALERY VILLASENOR M.D. DATE OF CONSULTATION: 10/10/2017. REASON FOR CONSULTATION: Oncology was consulted to render opinion regarding a patient with abnormal brain MRI with a prior history of a brain tumor. CONSULTING PHYSICIAN: Dr. Funk. HISTORY OF PRESENT ILLNESS: The patient is a 47-year-old female admitted to the psychiatric unit under the Lee Act for depression and suicidal ideation. She has hearing loss and is not able to hear. The history was also obtained from her mother, Isha Harry, over the phone. 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 Unfortunately the tumor recurred 6 months later and she received chemotherapy for about 8 months. Since then, she has been in remission. She has had progressive hearing loss since the radiation. Her last hearing test was about 6 months ago. The patient was found to have profound hearing loss. She had lost her hearing aid recently. Due to the hearing loss, an MRI was ordered and it showed abnormal increased T2 signal with expansion of the gyri in the left frontotemporal lobe. No enhancement and no edema noted. The patient denies any headache. She reportedly has no constitutional symptoms. According nursing staff she is ambulating well. According to the mother, patient has had intermittent petite mal seizures. She denies chest pain or palpitation. Denies any shortness of breath or cough. Denies any nausea or vomiting or diarrhea or abdominal pain. PAST MEDICAL HISTORY: 1. 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 2. Seizure disorder. 3. Anxiety. 4. Depression. 5. Hypothyroidism. 6. Gastroesophageal reflux disease (GERD). 7. Hearing loss. 8. Non-melanoma skin cancer. PAST SURGICAL HISTORY: Craniotomy and resection of a skin cancer. FAMILY HISTORY: No cancer in the family. SOCIAL HISTORY: No tobacco or alcohol use. ALLERGIES: NO KNOWN DRUG ALLERGIES. CURRENT MEDICATIONS: 1. Synthroid. 2. Pravachol. 3. Ativan. 4. Vimpat. 5. Keppra. 6. Zoloft. 7. Protonix. REVIEW OF SYSTEMS: CONSTITUTIONAL: Negative. EYES: Negative. CARDIOVASCULAR: Negative. RESPIRATORY: Negative. GI: Negative. : Negative. MUSCULOSKELETAL: Negative. HEMATOLOGIC: Negative. ENDOCRINE: Negative. DERMATOLOGIC: Negative. PSYCHIATRIC: As above. NEUROLOGIC: As above. PHYSICAL EXAMINATION: Physical exam done with a fire control mechanic present. VITAL SIGNS: Temperature 99.1, blood pressure 106/56, 02 saturation 92% on room air. GENERAL: She is awake and very pleasant. She is oriented to self and place. She states that she wants to go home. HEAD, EYES, EARS, NOSE, THROAT: Surgical scar noted bilateral temporal area, which seems a little sunken. Pupils equal, round and reactive to light. OROPHARYNX: Dry mucosa. No lesions. NECK: No thyromegaly. LYMPHATIC: No palpable cervical, clavicular, axillary lymph nodes. CARDIOVASCULAR: Regular S1 and S2. No murmur. LUNGS: Clear to auscultation bilaterally. No wheezing or rhonchi. ABDOMEN: Abdomen soft and nontender. I could not palpate liver or spleen. EXTREMITIES: No cyanosis or clubbing. No edema. NEUROLOGIC EXAM: She is moving all four. LABORATORY DATA: Laboratory data dated October 07, 2017 was reviewed ASSESSMENT: 1. Abnormal brain MRI. She has had progressive hearing loss since radiation treatment of a brain tumor 35 years ago. The brain MRI did not show any acoustic neuroma; however, there is increased abnormal T2 signal and expansion of gyri in the left anterior temporal lobe. There is no enhancement and no edema noted. The radiologist felt that this could be a neoplastic process. 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 According to the patient's mother, the patient had three MRIs done last year and the last one was around May of last year. She thinks that one of the MRIs did mention some abnormality on the left side. Clinically the patient has no neurologic symptoms other than the progressive hearing loss, which is chronic. I told the patient's mother to bring in the MRI disc so that the radiologist can compare and see if there are any changes. The patient did have brain radiation in the past and I am wondering if any of this could be due to prior radiation changes. 2. 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 She had resection in May of 1984. Apparently it could not be totally resected due to the proximity to the brain stem. She then received 30 fractions of radiation for a total of 6000 rads. The tumor recurred six months later and then she was treated with five cycles of chemotherapy that lasted about eight months. Since then, she has been in remission. 3. Seizure disorder currently being followed by neurology. The mother states that she is awaiting a referral to see a neurologist at [facility]. 4. Hearing loss. She has progressive hearing loss since she had radiation thirty-five years ago. She has just had another hearing test six months ago which showed profound hearing loss and was told that a hearing aid is not going to help her. She has been referred to [facility] to consider a cochlear implant. 5. Anxiety and depression. As above. 6. Hypothyroidism. 7. Gastroesophageal reflux disease. 8. Non-melanoma skin cancer. RECOMMENDATIONS: 1. Extensive discussion with the patient's mother over the phone. 2. I told her to bring in the MRI disc from last year so that the radiologist can compare it to her recent MRI. 3. Further recommendations will depend on the comparison MRI. Thank you, Dr. Funk, for asking me to see this patient. MD YESENIA Walter/JCDelfino /4:04 PM /5:09 PM ERMIAS
--- NOTE | 2017-10-10 20:59 | MG ---
cc: FILIBERTO MOTLEY M.D. Lab No: Date: 10/10/2017 Age: Sex: F Race: DATE OF 1970, 47 years old ELECTROENCEPHALOGRAM NUMBER [id number] ROOM [id number] With photic stimulation. Awake, drowsy asleep study. CT initially negative. I believe followup MRI showed a new lesion. Please refer to report. This is a 47-year-old woman Lee acted for suicidal thoughts. History of left temporal lobe mass, lobectomy, radiation. MEDICATIONS Current medications are: 1. Vimpat. 2. Keppra. 3. Zoloft. 4. Protonix. 5. Synthroid. DESCRIPTION OF RECORD The patient exhibits phase reversals over the right hemisphere frontotemporal. There is overall slowing predominately of 6 Hz theta frequency as well. And some sharps were seen over the left hemisphere temporal and phase reversals over the right. Hyperventilation was not performed. Photic stimulation there is a mild driving response. IMPRESSION Abnormal EEG due to phase reversals as described with occasional sharp waves. Consistent with epileptic potential. The patient is already on lacosamide and Keppra. Clinical correlation. Active seizures however, were not observed. MD DAYTON Street/RIMA /7:44 PM /8:42 PM
[2017-10-10] MEDS: LORazepam 0.5 MG TAB PO SCH (21:05)
[2017-10-10] MEDS: PRAVASTATIN SOD 40 MG TAB PO SCH (21:08)
[2017-10-11 05:30] VITALS: BP 105/58; PULSE 82; RESP 17; TEMP 97.9; O2SAT 98
[2017-10-11] MEDS: LEVOTHYROXINE SODIUM 88 MCG TAB PO SCH (06:16)
[2017-10-11] MEDS: levETIRAcetam 500 MG TAB PO SCH ×2 (08:47→21:31)
[2017-10-11] MEDS: PANTOPRAZOLE SOD 20 MG DELAYED RELEASE TAB PO SCH (08:47)
[2017-10-11] MEDS: SERTRALINE HCL 50 MG TAB PO SCH (08:47)
[2017-10-11] MEDS: LACOSAMIDE 100 MG TAB PO SCH ×2 (08:47→21:31)
--- NOTE | 2017-10-11 10:25 | PD.TTN ---
Patient Problems 1. Discharge planning 2. Medication compliance 3. Knowledge deficit 4. Lack of coping skills Progress Toward Goals Provider Present: Dr. Monty Duran Provider Input: Dr. Duran's had his treatment team to discuss treatment plan, medication and discharge. Patient received a MRI and found new mass on patient's brain. Patient is depressed, but denies suicidal ideation. Patient is medication compliant. Once stable patient will go back home. Nurse(s) Input: Patient nurse reports patient is childlike, needy, cooperative, denies suicidal and homicidal ideation. Patient is medication compliant. Psychiatric Counselors Present: [facility] Input: Patient was cooperative, childlike, seclusive, affect blunted. Patient denies suicidal and homicidal ideation. Patient is medication compliant. Patient will return home Group Spec/RT/OT/HINOJOSA Present: ASHISH Ardon Spec/RT/OT/HINOJOSA Input: Patient is seclusive and attends no groups. Monik Raines [facility] Oct 11, 2017 10:25
--- NOTE | 2017-10-11 11:52 | PD.CONS ---
History of Present Illness Service Neurosurgery Consult Requested By Oncology service Reason for Consult History of right frontotemporal astrocytoma with left temporal lobe lesion on recent MRI Primary Care Physician Unknown Diagnoses: History of Present Illness The patient is a 47-year-old female. History is obtained from the medical record and the family. She has a history of right frontotemporal grade 2 astrocytoma treated with surgical resection followed by radiation therapy at age 13 years. With a year after surgery she received chemotherapy for recurrent lesion. She has been followed with intermittent brain MRI scans. She was recently admitted as a Lee act due to suicidal ideation. She states that she has occasional mild headaches. She also indicates some mild difficulty with ambulation and balance. No visual symptoms. She denies any significant weakness in the extremities. She does have a history of seizure disorder, recently underwent an EEG on 10/10/17 which revealed phase reversals with occasional sharp waves consistent with epileptic potential. She has been maintained on Keppra and lacosamide. Review of Systems Constitutional: DENIES: Fever Eyes: COMPLAINS OF: Blurred vision Respiratory: COMPLAINS OF: Shortness of breath Cardiovascular: COMPLAINS OF: Chest pain Gastrointestinal: COMPLAINS OF: Abdominal pain Musculoskeletal: COMPLAINS OF: Neck pain Neurologic: COMPLAINS OF: Headache Psychiatric: COMPLAINS OF: Suicidal Ideation Past Family Social History Allergies: Coded Allergies: No Known Drug Allergies (Verified Allergy, Unknown, 10/07/17) Uncoded Allergies: FISH (Allergy, Intermediate, Nausea/Vomiting, 10/07/17) PT STATES SHE CAN'T EAT FISH Past Medical History History of grade 2 astrocytoma right frontotemporal region Seizure disorder Anxiety and depression Past Surgical History Craniotomy for astrocytoma age 13 years Skin cancer resection Reported Medications Reported Meds & Active Scripts Active Reported Vimpat (Lacosamide) 200 Mg Tab 200 Mg PO BID Keppra (Levetiracetam) 1,000 Mg Tab 2,000 Mg PO BID Omeprazole 20 Mg Tab 20 Mg PO DAILY Zocor (Simvastatin) 20 Mg Tab 20 Mg PO HS Ativan (Lorazepam) 0.5 Mg Tab 0.5 Mg PO HS Synthroid (Levothyroxine Sodium) 88 Mcg Tab 88 Mcg PO DAILY Family History Negative for cancer Social History No alcohol or tobacco use Physical Exam Vital Signs Vital Signs Date Time Temp Pulse Resp B/P (MAP) Pulse Ox O2 Delivery O2 Flow Rate FiO2 10/11/17 05:30 97.9 82 17 105/58 (74) 98 10/10/17 17:30 98.9 101 16 128/82 (97) 96 Physical Exam GENERAL: This is a well-nourished, well-developed patient, in no apparent distress. SKIN: No lesions noted. HEAD: Atraumatic. Normocephalic. No temporal or scalp tenderness. EYES: Sclerae are clear and nonicteric ENT: No facial edema or ecchymosis. Oropharynx clear NECK: Trachea midline. No lymphadenopathy. Supple, nontender, no meningeal signs. CARDIOVASCULAR: Regular rate and rhythm without murmurs, gallops, or rubs. RESPIRATORY: Clear to auscultation. Breath sounds equal bilaterally. No wheezes , rales, or rhonchi. GASTROINTESTINAL: Abdomen soft, non-tender, nondistended. No hepato-splenomegaly , or palpable masses. No guarding. MUSCULOSKELETAL: Extremities without cyanosis, or edema. No joint tenderness, effusion, or edema noted. No calf tenderness. NEUROLOGIC: Awake and alert Hearing is significantly diminished She communicates verbally and in writing. She responds appropriately to questions She has some difficulty following commands accurately which appears to be related to imperative medication due to hearing loss. She says a few words with soft, relatively clear speech Extraocular movements are intact. She responds to finger movement or quadrants bilateral Facial motor and sensory, tongue, palate testing intact Severely diminished hearing bilateral Sensation intact by touch all extremities Strength within normal limits major flexion-extension groups all extremities Laboratory Date/Time Source Procedure Growth Status 10/07/17 14:00 Urine Random Urine Urine Culture - Final 50-100,000 CFU/ML MIXED GRAM POSITIVE... Complete Result Diagram: 10/07/17 1400 10/08/17 0830 Imaging 10/10/2017 MRI brain images reviewed by the undersigned. There is diffuse increased signal intensity in the anterior left temporal lobe with general expansion on T2 images. Postsurgical chronic changes right temporal lobe Brain MRI 10/10/17 0000 Signed Impressions: Service Date/Time: Tuesday, October 10, 2017 12:27 - CONCLUSION: The anterior aspect of the left temporal lobe is diffusely abnormal in appearance with increased T2 signal and expansion of the gyri concerning for neoplastic involvement. No evidence of enhancement. There has been resection of the anterior aspect of the right temporal lobe.. Carmita Cortes MD Head CT 10/08/17 0000 Signed Impressions: Service Date/Time: Sunday, October 08, 2017 16:11 - CONCLUSION: Negative for an acute process I have no prior studies for comparison. MRI would be more sensitive for acoustic neuroma. Graeme Aguirre MD FACR Assessment and Plan Assessment and Plan Impression: 1. Left anterior temporal lobe T2 signal intensity changes which are all expansion suspicious for low-grade astrocytoma and patient with previous history of right frontotemporal grade 2 astrocytoma. 2. Seizure history Plan: The imaging studies and oncology notes have been reviewed. On 10/12/17 the patient was reviewed at the tumor board and left temporal lobe MRI changes were felt to be most likely related to prior radiation therapy. Findings were discussed with the patient's mother on the telephone by the undersigned. She advises that she has an appointment with neurology at [facility] in October 2017. No neurosurgical intervention is anticipated at this point. It is quite appropriate that she follow up at [facility] with neurology and also with neurosurgery is indicated given the complexity of her situation. Ferdinand Gallegos MD Oct 11, 2017 11:51
--- NOTE | 2017-10-11 13:41 | HHI.PR ---
Subjective Remarks Follow up for hearing loss, abnormal MRI. The patient is seen resting in bed. She states she wants to go home. She is asking if her mom is coming to get her soon. She denies any headache, lightheadedness, dizziness, or any other medical complaints at this time. She states she is eating well. Vital signs reviewed and stable. Objective Vitals Vital Signs Date Time Temp Pulse Resp B/P (MAP) Pulse Ox O2 Delivery O2 Flow Rate FiO2 10/11/17 05:30 97.9 82 17 105/58 (74) 98 10/10/17 17:30 98.9 101 16 128/82 (97) 96 I/O 10/10/17 10/10/17 10/10/17 10/11/17 10/11/17 10/11/17 07:00 15:00 23:00 07:00 15:00 23:00 Intake Total 720 ml 240 ml 780 ml Balance 720 ml 240 ml 780 ml Intake Oral 720 ml 240 ml 780 ml # Voids 1 Result Diagram: 10/07/17 1400 10/08/17 0830 Imaging Last Impressions Brain MRI 10/10/17 0000 Signed Impressions: Service Date/Time: Tuesday, October 10, 2017 12:27 - CONCLUSION: The anterior aspect of the left temporal lobe is diffusely abnormal in appearance with increased T2 signal and expansion of the gyri concerning for neoplastic involvement. No evidence of enhancement. There has been resection of the anterior aspect of the right temporal lobe.. Carmita Cortes MD Head CT 10/08/17 0000 Signed Impressions: Service Date/Time: Sunday, October 08, 2017 16:11 - CONCLUSION: Negative for an acute process I have no prior studies for comparison. MRI would be more sensitive for acoustic neuroma. Graeme Aguirre MD FACR Objective Remarks GENERAL: Well-nourished, well-developed patient in NAD. Deaf. SKIN: Warm and dry. No rash. HEENT: Normocephalic. Atraumatic. Pupils equal and round. Mucous membranes pink and moist. CARDIOVASCULAR: Regular rate and rhythm. S1, S2 noted. No murmur appreciated. RESPIRATORY: No accessory muscle use. Clear to auscultation. Breath sounds equal bilaterally. GASTROINTESTINAL: Abdomen soft, non-tender, nondistended. Normoactive bowel sounds x4. MUSCULOSKELETAL: No obvious deformities. Extremities without clubbing, cyanosis , or edema. NEUROLOGICAL: Awake and alert. No obvious cranial nerve deficits. Motor grossly within normal limits. Normal speech. Medications and IVs Current Medications Medications (Trade) Dose Ordered Sig/Raeann Route Start Time Stop Time Status Last Admin (Ativan) 1 mg Q6H PRN PO 10/07/17 23:15 (Ativan Inj) 1 mg Q6H PRN IM 10/07/17 23:15 (Tylenol) 650 mg Q4H PRN PO 10/07/17 23:15 (Milk Of Magnesia Liq) 30 ml DAILY PRN PO 10/07/17 23:15 (Mag-Al Plus Susp Liq) 30 ml Q6H PRN PO 10/07/17 23:15 (Vimpat) 200 mg BID PO 10/08/17 11:00 10/11/17 08:47 (Keppra) 2,000 mg BID PO 10/08/17 10:00 10/11/17 08:47 (Synthroid) 88 mcg DAILY@0600 PO 10/09/17 06:00 10/11/17 06:16 (Protonix) 20 mg DAILY PO 10/08/17 09:30 10/11/17 08:47 (Pravachol) 40 mg HS PO 10/08/17 21:00 10/10/17 21:08 (Zoloft) 50 mg DAILY PO 10/08/17 10:00 10/11/17 08:47 (Ativan) 0.5 mg HS PO 10/08/17 21:00 10/10/17 21:05 A/P Problem List: (1) Adjustment disorder with depressed mood ICD Code: F43.21 - Adjustment disorder with depressed mood Assessment and Plan 47-year-old female with 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 Hospitalists consulted for medical management. Depression with Suicidal Ideations: acute -continue management per psychiatry -currently on Zoloft Seizures: with hx of brain tumor resection. Chronic. -continue patient's vimpat and keppra -neurology consulted by psychiatry team, appreciate recommendations -EEG abnormal with occasional sharp waves -no signs of active seizures reported, will continue current medication regimen as above Hearing Loss with Abnormal Brain MRI: patient with hx of right frontotemporal brain tumor resection age 13, now with progressive hearing loss -Head CT images reviewed, no acute findings -Brain MRI shows anterior aspect of left temporal lobe diffusely abnormal with increased T2 signal and expansion of the gyri concerning for neoplastic involvement -neurology consulted as above -consult neurosurgery and oncology -awaiting patient's mother to bring disc of previous brain MRIs for oncologist/neurosurgeon to compare Hypothyroidism: chronic. TSH wnl. -continue patient's synthroid DVT Prophylaxis: patient is ambulatory Jocelynn Funk PA-C Oct 11, 2017 1:41 pm
--- NOTE | 2017-10-11 16:22 | HHI.PYPN ---
Subjective Remarks Patient is seen for follow, chart reviewed. Discussion nursing staff reported the patient absent compliant with medications with no behavioral disturbances. Patient was found lying in hospital bed noted to be calm and cooperative. Medication was done through writing as patient has hearing loss. Patient was requesting to be discharged home stating that she had been feeling "okay" patient denied any further depressive symptoms stating that she wanted to go home with be with her mother. She reports having been visited by her mother yesterday. She denies any thoughts of wanting to hurt herself or any suicidal ideations at this time. Review of Systems Except as stated in HPI: all other systems reviewed are Neg Mental Status Examination Appearance: Appropriate Consciousness: Alert Orientation: Person, Place Motor Activity: Other (slow gait) Speech: Slow Language: Adequate Fund of Knowledge: Inadequate Attention and Concentration: Inadequate Memory: Unremarkable Mood: Appropriate Affect: Blunt Thought Process & Associations: Other (concrete) Thought Content: Appropriate Hallucination Type: None, Auditory Delusion Type: None Suicidal Ideation: No Suicidal Plan: No Suicidal Intention: No Homicidal Ideation: No Homicidal Plan: No Homicidal Intention: No Insight: Fair Judgment: Impulsive Results Labs Date/Time Source Procedure Growth Status 10/07/17 14:00 Urine Random Urine Urine Culture - Final 50-100,000 CFU/ML MIXED GRAM POSITIVE... Complete Vitals/IOs Vital Signs Date Time Temp Pulse Resp B/P (MAP) Pulse Ox O2 Delivery O2 Flow Rate FiO2 10/11/17 05:30 97.9 82 17 105/58 (74) 98 10/07/17 22:19 Room Air Intake and Output 10/11/17 10/11/17 10/12/17 08:00 16:00 00:00 Intake Total 660 ml 360 ml Balance 660 ml 360 ml Assessment & Plan Problem List: (1) Adjustment disorder with depressed mood ICD Codes: F43.21 - Adjustment disorder with depressed mood Assessment & Plan Patient at this time has not had any behavioral disturbances, has been calm and compliant with staff. Patient tolerating medications well continue current treatment. Patient likely for discharge soon but pending medical clearance as oncology consultants have concerns with recent findings on imaging and pending to confirm the patient will require further intervention or follow-up. Continue to monitor mood and behavior. Discharge planning in progress Justification for Cont. Inpt. At risk for decompensation at lower level of care Discharge Planning Back to her residence once psychiatrically and medically cleared Junaid Duran MD Oct 11, 2017 16:22
[2017-10-11 18:20] VITALS: BP 110/60; PULSE 80; RESP 16; TEMP 98; O2SAT 98
[2017-10-11] MEDS: PRAVASTATIN SOD 40 MG TAB PO SCH (21:31)
[2017-10-11] MEDS: LORazepam 0.5 MG TAB PO SCH (21:31)
[2017-10-12] MEDS: LEVOTHYROXINE SODIUM 88 MCG TAB PO SCH (05:52)
[2017-10-12 06:14] VITALS: BP 97/60; PULSE 90; RESP 16; TEMP 98
[2017-10-12] MEDS: levETIRAcetam 500 MG TAB PO SCH (08:43)
[2017-10-12] MEDS: SERTRALINE HCL 50 MG TAB PO SCH (08:43)
[2017-10-12] MEDS: PANTOPRAZOLE SOD 20 MG DELAYED RELEASE TAB PO SCH (08:43)
[2017-10-12] MEDS: LACOSAMIDE 100 MG TAB PO SCH (08:45)
[2017-10-12] MEDS ORDERED: PANT20 PO (11:23)
[2017-10-12] MEDS ORDERED: LORA-392 PO (11:23)
[2017-10-12] MEDS ORDERED: PRAV40TA PO (11:23)
[2017-10-12] MEDS ORDERED: KEPP10002 PO (11:23)
[2017-10-12] MEDS ORDERED: SYNT88TA PO (11:23)
[2017-10-12] MEDS ORDERED: ZOLO50TA PO (11:23)
[2017-10-12] MEDS ORDERED: VIMP200T PO (11:23)
--- NOTE | 2017-10-12 11:24 | HHI.DS ---
Psychiatry Discharge Summary Inpatient Psychiatric care?: Yes Advance Directive: No Reason Not Provided: Due to Patient Condition Mental Health AdvanceDirective: No Health Care Proxy: No Admission Admission Date Oct 07, 2017 at 22:53 Admission Diagnosis: (1) Adjustment disorder with depressed mood ICD Code: F43.21 - Adjustment disorder with depressed mood Brief History Pt is a 39 YOWF with a hx of R temporal lobectomy, seizure disorder and hypothyroidism who was admitted to under a BA due to suicidal ideations and depression. Staff report that she has been focused on discharge. She has been compliant with medications. She reports depression and AH. She endorses recent SI but insight into need for treatment is poor. 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 Collateral contact: Nakia Harry (mom) [phone] Tobacco Use In Past 30 Days: No Tobacco Past 30 Days Alcohol Use: Never Hospital Course Patient is a 39-year-old woman, single, unemployed domiciled with mother and mother's , with a past psychiatric history no previous psychiatric diagnoses no previous psychiatric admissions no previous suicide attempts or self-injurious behavior no significant substance history but a past medical history significant for right temporal lobe mass status post lobectomy , seizure disorder, hypothyroidism was brought in under [facility] for psychiatric evaluation after patient reported feeling depressed along with having suicide ideation with plan to put his life in stomach which patient was admitted to the inpatient psychiatry unit for further evaluation and management. Patient was started sertraline 50mg PO daily and continued on antiseizure regimen along with her medical regimen which he tolerated well. Patient during initial psychiatric patient had been noted to have hearing loss which communication was carried out via writing. She was noted to be more interactive and cooperative with staff, improved mood, no longer endorsing depressed mood nor suicidal ideation and noted with fair mood. She was also noted to endorse being future oriented with motivation to continue treatment and wanting to return back home with her mother. 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 Recent imaging was noted with abnormal findings which were concerning for possible neoplastic process but comparison done with previous imaging it was determined that there was no evidence of neoplasm. Patient no longer met criteria for involuntary psychiatric hospitalization and would continue follow up outpatient as recommended by consult team. Upon discharge patient stated feeling good, stated feeling okay with returning back to his home with family; noted to be calm and cooperative with staff. She agreed to continuing medication regimen and treatment and follow up with outpatient services for continuity of care. Patient; denies SI, HI, AVH or delusions. Supportive psychotherapy provided. Suicide and violence risk assessment on day of discharge both suggest lower imminent risk, and the patient's level of function is adequate for planned level of outpatient care. Patient has maximized benefit from this inpatient psychiatric hospital stay and to return to psychiatric emergency room for any concerning psychiatric symptoms. Patient agrees with plan. Results Blood Pressure 97 / 60 Vital Signs Date Time Temp Pulse Resp B/P (MAP) Pulse Ox O2 Delivery O2 Flow Rate FiO2 10/12/17 06:14 98.0 90 16 97/60 (72) 10/11/17 18:20 98 Laboratory Results Test 10/08/17 08:30 Cholesterol Level 199 MG/DL (120-200) HDL Cholesterol 40.0 MG/DL (40.0-60.0) Hemoglobin A1c 5.7 % (4.3-6.0) LDL Cholesterol 105 MG/DL (0-99) Triglycerides Level 269 MG/DL (42-150) Summary of Procedures none Imaging Last Impressions Brain MRI 10/10/17 0000 Signed Impressions: Service Date/Time: Tuesday, October 10, 2017 12:27 - CONCLUSION: The anterior aspect of the left temporal lobe is diffusely abnormal in appearance with increased T2 signal and expansion of the gyri concerning for neoplastic involvement. No evidence of enhancement. There has been resection of the anterior aspect of the right temporal lobe.. Carmita Cortes MD Head CT 10/08/17 0000 Signed Impressions: Service Date/Time: Sunday, October 08, 2017 16:11 - CONCLUSION: Negative for an acute process I have no prior studies for comparison. MRI would be more sensitive for acoustic neuroma. Graeme Aguirre MD FACR Pending results at discharge: No Medications # of Antipsychotic meds at D/C: 0 Approp Antipsych med options 1 - Minimum of three failed multiple trials of monotherapy. 2 - Documented plan to taper to monotherapy due to previous use of multiple meds OR cross-taper in progress at D/C. 3 - Documentation of augmentation of Clozapine. 4 - Justification other than those listed in allowable values 1-3, document here : Discharge Discharge Date: Oct 12, 2017 Discharge Diagnosis: (1) Adjustment disorder with depressed mood ICD Code: F43.21 - Adjustment disorder with depressed mood Pt Condition on Discharge: Stable Discharge Disposition: Discharge Home Discharge Instructions Diet Instructions: As Tolerated, No Restrictions Activities you can perform: Weight Bearing as Matt Discharge Time > 30 minutes Mental Status Examination Appearance: Appropriate Consciousness: Alert Orientation: Person, Place Motor Activity: Other (slow gait) Speech: Slow Language: Adequate Fund of Knowledge: Inadequate Attention and Concentration: Inadequate Memory: Unremarkable Mood: Appropriate Affect: Appropriate Thought Process & Associations: Linear, Other (concrete) Thought Content: Appropriate Hallucination Type: None, Auditory Delusion Type: None Suicidal Ideation: No Suicidal Plan: No Suicidal Intention: No Homicidal Ideation: No Homicidal Plan: No Homicidal Intention: No Insight: Fair Judgment: Impulsive Discharge/Advance Care Plan Health Problems: (1) Adjustment disorder with depressed mood Goals to promote your health * To prevent worsening of your condition and complications * To maintain your health at the optimal level Directions to meet your goals Take your medications as prescribed Follow your dietary instruction Follow activity as directed Keep your appointments as scheduled Take your immunizations and boosters as scheduled If your symptoms worsen call your PCP, if no PCP go to Urgent Care Center or Emergency Room For 22/03 questions related to your inpatient stay or results of tests pending at discharge, please contact Dr. Junaid Duran at Smoking is Dangerous to Your Health. Avoid second hand smoking Junaid Duran MD Oct 12, 2017 11:24
--- NOTE | 2017-10-12 14:59 | PD.ONC.PN ---
Subjective Subjective Remarks Hard in hearing, eating breakfast. No headache. Wanted to go home. Objective Data Date Time Temp Pulse Resp B/P (MAP) Pulse Ox O2 Delivery O2 Flow Rate FiO2 10/12/17 06:14 98.0 90 16 97/60 (72) 10/11/17 18:20 98.0 80 16 110/60 (77) 98 10/12/17 10/12/17 10/12/17 07:00 15:00 23:00 Intake Total 360 ml 480 ml Balance 360 ml 480 ml Result Diagram: 10/08/17 0830 Administered Medications Medications (Trade) Dose Ordered Sig/Raeann Route PRN Reason Start Time Stop Time Status Last Admin Dose Admin Lacosamide (Vimpat) 200 mg BID PO 10/08/17 11:00 10/12/17 08:45 Levetriacetam (Keppra) 2,000 mg BID PO 10/08/17 10:00 10/12/17 08:43 Levothyroxine Sodium (Synthroid) 88 mcg DAILY@0600 PO 10/09/17 06:00 10/12/17 05:52 Pantoprazole Sodium (Protonix) 20 mg DAILY PO 10/08/17 09:30 10/12/17 08:43 Pravastatin Sodium (Pravachol) 40 mg HS PO 10/08/17 21:00 10/11/17 21:31 Sertraline HCl (Zoloft) 50 mg DAILY PO 10/08/17 10:00 10/12/17 08:43 Lorazepam (Ativan) 0.5 mg HS PO 10/08/17 21:00 10/11/17 21:31 Objective Remarks GENERAL: Well-nourished, well-developed patient. SKIN: Warm and dry. HEAD: Normocephalic. Hard in hearing EYES: No scleral icterus. No injection or drainage. NECK: Supple, trachea midline. No JVD or lymphadenopathy. LYMPHATIC: No adenopathy. CARDIOVASCULAR: Regular rate and rhythm without murmurs. RESPIRATORY: Breath sounds equal bilaterally. No accessory muscle use. GASTROINTESTINAL: Abdomen soft, non-tender, nondistended. EXTREMITIES: No cyanosis, or edema. MUSCULOSKELETAL: Adequate muscle tone. NEUROLOGICAL: No obvious focal deficit. Awake, alert, and oriented x3. Assessment/Plan Assessment 1. Abnormal brain MRI. She has had progressive hearing loss since radiation treatment of a brain tumor 35 years ago. The brain MRI did not show any acoustic neuroma; however, there is increased abnormal T2 signal and expansion of gyri in the left anterior temporal lobe. There is no enhancement and no edema noted. The radiologist felt that this could be a neoplastic process. 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 According to the patient's mother, the patient had three MRIs done last year and the last one was around May of last year. She thinks that one of the MRIs did mention some abnormality on the left side. Clinically the patient has no neurologic symptoms other than the progressive hearing loss, which is chronic. I told the patient's mother to bring in the MRI disc so that the radiologist can compare and see if there are any changes. The patient did have brain radiation in the past and I am wondering if any of this could be due to prior radiation changes. 10/12/17 Discussed with radiology and radiation oncology at the tumor board. The MRI changes noted in the left anterior temporal lobe appear to be due to prior radiation. The radiologist reviewed pt's prior MRI and similar signal changes was noted on prior MRI. There is no apparent neoplasm noted. 2. 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 She had resection in May of 1984. Apparently it could not be totally resected due to the proximity to the brain stem. She then received 30 fractions of radiation for a total of 6000 rads. The tumor recurred six months later and then she was treated with five cycles of chemotherapy that lasted about eight months. Since then, she has been in remission. 3. Seizure disorder currently being followed by neurology. The mother states that she is awaiting a referral to see a neurologist at [facility]. 4. Hearing loss. She has progressive hearing loss since she had radiation thirty-five years ago. She has just had another hearing test six months ago which showed profound hearing loss and was told that a hearing aid is not going to help her. She has been referred to [facility] to consider a cochlear implant. Plan RECOMMENDATIONS: 1. Reviewed prior MRI with radiologist and no evidence of neoplasm 2. F/u with her neurologist 3. I will try to call pt's mother later today. Ab Spence MD Oct 12, 2017 14:59
== END 2017-10-12 17:40 | disposition home or self-care (01) | DRG 881 ==
LOC: NEPJ 13:37 → NEDA 22:53 → H250 23:05
PROVIDERS: ADMIT Student in an Organized Health Care Education/Training Program; ATTEND Student in an Organized Health Care Education/Training Program
DX: F43.21 Adjustment disorder with depressed mood (principal); R45.851 Suicidal ideations; G40.909 Epilepsy, unspecified, not intractable, without status epilepticus; E03.9 Hypothyroidism, unspecified; H91.90 Unspecified hearing loss, unspecified ear; F41.9 Anxiety disorder, unspecified; K21.9 Gastro-esophageal reflux disease without esophagitis; Y84.2 Radiological procedure and radiotherapy as the cause of abnormal reaction of the patient, or of later complication, without mention of misadventure at the time of the procedure; Z85.828 Personal history of other malignant neoplasm of skin; Z92.21 Personal history of antineoplastic chemotherapy; Z85.841 Personal history of malignant neoplasm of brain
CPT/HCPCS: 70450; 70553; 80048; 80053; 80061; 80307; 81001; 83036; 84443; 84702; 85025; 87086; 93005; 95819; A9579